=== PATIENT | female | born 1970 | race African-American/Black ===

== ENCOUNTER 2022-10-22 20:57 | Inpatient (IN) | payer OTHER ==
[~2022-10-22] VITALS: Ht 157.5 cm; Wt 105.7 kg
[2022-10-22] MEDS ORDERED: KETOROLAC 30MG/ML VIAL IV STA (21:23)
[2022-10-22 21:43] LABS: BASOPHILS % 0.3 % (0.0-2.0); EOSINOPHILS % 0.1 % (0.0-5.0); HEMATOCRIT. 37.1 % (36.0-48.0); HEMOGLOBIN. 12.7 g/dL (12.0-16.0); LYMPHOCYTES % 8.2 % (20.0-50.0); MEAN CORPUSCULAR HEMOGLOBIN 29.6 pg (28.0-32.0); MEAN CORPUSCULAR VOLUME 86.4 fL (81.0-99.0); MEAN PLATELET VOLUME 7.8 fl (7.4-10.4); MONOCYTES % 2.9 % (2.0-8.0); NEUTROPHILS % 88.5 % (40.0-76.0); PLATELET 302 x1000/uL (130-400); RED BLOOD CELL COUNT 4.29 mill/uL (4.2-5.4); RED CELL DISTRIBUTION WIDTH 13.3 % (11.6-14.6)
[2022-10-22] MEDS ORDERED: VANCOMYCIN 1G PREMIX 200 ML IV ONE (21:45)
[2022-10-22] MEDS ORDERED: PIPERACILLIN/TAZ 3.375G PREMIX 50 ML IV ONE (21:45)
[2022-10-22] MEDS ORDERED: SODIUM CHLORIDE 0.9% 1000ML BAG (SEPSIS BOLUS) IV ONE (21:45)
[2022-10-22 21:48] LABS: CHLORIDE 100 mEq/L (98-107)
[2022-10-22] MEDS ORDERED: POTASSIUM CHLORIDE 20MEQ TABLET SR PO ONE (23:00)
[2022-10-22 23:07] LABS: HCG SCREEN NEGATIVE
[2022-10-22] MEDS ORDERED: MAGNESIUM/ALUMINUM HYDROXIDE/SIMETHICONE 30ML UDC PO PRN (23:15)
[2022-10-22] MEDS ORDERED: DIPHENHYDRAMINE 50MG/ML VIAL IV PRN (23:15)
[2022-10-22] MEDS ORDERED: ACETAMINOPHEN 325MG TABLET PO PRN (23:15)
[2022-10-22] MEDS ORDERED: POTASSIUM CHLORIDE INJ 40 MEQ in DEXT 5% WATER 250 ML IV ONE (23:15)
[2022-10-22] MEDS ORDERED: ONDANSETRON HCL 4MG/2ML INJ IV PRN (23:15)
[2022-10-22] MEDS ORDERED: AZITHROMYCIN 500 MG in DEXT 5% WATER 250 ML IV SCH (23:30)
[2022-10-22 23:36] LABS: BG BASE EXCESS -3.9 mmol/L (-2.0-2.0); BG CARBOXYHEMOGLOBIN 0.5 % (0.5-1.5); BG DEOXYHEMOGLOBIN 5.2 % (0.0-5.0); BG FRACTION INSPIRED OXYGEN 70; BG HCO3 ACT 20.8 mmol/L (22.0-26.0); BG METHEMOGLOBIN 0.2 % (0.0-1.5); BG OXYGEN SATURATION 94.8 % (92.0-98.5); BG OXYHEMOGLOBIN 94.1 % (94.0-97.0); BG PCO2 36.7 mmHg (35.0-45.0); BG PH 7.372 (7.350-7.450); BG PO2 80.4 mmHg (75.0-100.0); BG SAMPLE SITE LEFT RADIAL; BG TOTAL HEMOGLOBIN 12.8 g/dL (12.0-18.0); BG VENT MODE MASK - BIPAP
[2022-10-22 23:38] LABS: CLARITY URINE CLEAR (CLEAR); COLOR URINE YELLOW (YELLOW); KETONES URINE NEGATIVE (NEGATIVE); LEUKOCYTE ESTERASE URINE NEGATIVE (NEGATIVE); NITRITE URINE NEGATIVE (NEGATIVE); OCCULT BLOOD URINE NEGATIVE (NEGATIVE); PROTEIN URINE TRACE (NEGATIVE); SPECIFIC GRAVITY URINE 1.009 (1.005-1.030); UROBILINOGEN URINE 0.2 E.U./dL (0.2-1.0)
[2022-10-22] MEDS ORDERED: NALOXONE HCL 0.4MG/ML VIAL IV PRN (23:45)
[2022-10-22] MEDS ORDERED: CEFTRIAXONE 1GM PREMIX 50 ML IV SCH (23:45)
[2022-10-23 00:21] LABS: D-DIMER 2.31 mg/L FEU (<0.50); INR 1.3; PROTHROMBIN TIME 13.9 sec (9.6-11.0)
[2022-10-23] MEDS: SODIUM CHLORIDE 0.9% 1,000 ML IV SCH ×2 (00:36→09:55)
[2022-10-23] MEDS ORDERED: ENOXAPARIN 100MG/ML SYR SUBCUT ONE (01:30)
[2022-10-23] MEDS ORDERED: NOREPINEPHRINE 8 MG in DEXT 5% WATER 242 ML IV PRN (02:15)
[2022-10-23] MEDS: KCL 20MEQ/100ML X 2 FOR TOTAL KCL 40MEQ/200ML IV SCH ×2 (02:41)
[2022-10-23] MEDS: IPRATROPIUM/ALBUTEROL 0.5-3(2.5)MG/3ML NEB HHN SCH ×5 (02:59→20:25)
[2022-10-23] MEDS ORDERED: MAGNESIUM 4 G PREMIX 100 ML IV NR (04:00)
[2022-10-23 06:58] LABS: BG BASE EXCESS -4.6 mmol/L (-2.0-2.0); BG CARBOXYHEMOGLOBIN 0.7 % (0.5-1.5); BG DEOXYHEMOGLOBIN 3.3 % (0.0-5.0); BG HCO3 ACT 19.7 mmol/L (22.0-26.0); BG METHEMOGLOBIN 0.2 % (0.0-1.5); BG OXYGEN SATURATION 96.7 % (92.0-98.5); BG OXYHEMOGLOBIN 95.8 % (94.0-97.0); BG PCO2 34.2 mmHg (35.0-45.0); BG PH 7.378 (7.350-7.450); BG PO2 90.6 mmHg (75.0-100.0); BG SAMPLE SITE RIGHT RADIAL; BG TOTAL HEMOGLOBIN 13.8 g/dL (12.0-18.0); BG VENT MODE VAPOTHERM
[2022-10-23] MEDS: HYDROCODONE/ACETAMINOPHEN 10/325MG TABLET PO PRN ×2 (08:06→15:16)
[2022-10-23] MEDS ORDERED: ENOXAPARIN 30MG/0.3ML SYR SUBCUT SCH (09:00)
[2022-10-23 09:08] LABS: HEMATOCRIT. 39.1 % (36.0-48.0); HEMOGLOBIN. 12.8 g/dL (12.0-16.0); MEAN CORPUSCULAR HEMOGLOBIN 29.6 pg (28.0-32.0); MEAN CORPUSCULAR VOLUME 90.5 fL (81.0-99.0); MEAN PLATELET VOLUME 7.9 fl (7.4-10.4); PLATELET 313 x1000/uL (130-400); RED BLOOD CELL COUNT 4.32 mill/uL (4.2-5.4); RED CELL DISTRIBUTION WIDTH 13.7 % (11.6-14.6)
[2022-10-23 09:15] LABS: CHLORIDE 106 mEq/L (98-107)
[2022-10-23 09:22] LABS: PHOSPHORUS 3.2 mg/dL (2.5-4.9)
[2022-10-23] MEDS: POTASSIUM CHLORIDE 20MEQ TABLET SR PO SCH ×3 (09:55→15:30)
[2022-10-23] MEDS ORDERED: NOREPINEPHRINE 8MG/250ML PMX 250 ML IV PRN (10:00)
[2022-10-23 10:03] LABS: PLATELET ESTIMATE NORMAL
[2022-10-23] MEDS: METRONIDAZOLE 500MG TABLET PO SCH ×2 (10:11→16:10)
[2022-10-23] MEDS: ACETAMINOPHEN 325MG TABLET PO PRN (15:20)
[2022-10-23 22:00] VITALS: BP_SYST 154; BP_SYST 156; BP_DIAS 116; BP_DIAS 67
[2022-10-24] VITALS (12 sets, daily range): BP systolic 83–133; BP diastolic 53–83
[2022-10-24] MEDS: IPRATROPIUM/ALBUTEROL 0.5-3(2.5)MG/3ML NEB HHN SCH ×6 (00:39→21:33)
[2022-10-24] MEDS: AZITHROMYCIN 500 MG in DEXT 5% WATER 250 ML IV SCH ×2 (01:26→21:55)
[2022-10-24] MEDS: SODIUM CHLORIDE 0.9% 1,000 ML IV SCH ×3 (01:26→21:54)
[2022-10-24] MEDS: CEFTRIAXONE 1,000 MG in DEXTROSE 5% WATER 50 ML IV SCH ×2 (01:26→21:55)
[2022-10-24] MEDS: FAMOTIDINE 20MG TABLET PO SCH ×2 (01:27→21:55)
[2022-10-24] MEDS: METRONIDAZOLE 500MG TABLET PO SCH ×4 (01:36→21:55)
[2022-10-24] MEDS: ENOXAPARIN 30MG/0.3ML SYR SUBCUT SCH ×2 (01:37→09:43)
[2022-10-24] MEDS: HYDROCODONE/ACETAMINOPHEN 10/325MG TABLET PO PRN ×3 (06:20→19:00)
[2022-10-24 06:53] LABS: BASOPHILS % 0.2 % (0.0-2.0); EOSINOPHILS % 0.7 % (0.0-5.0); HEMOGLOBIN. 10.3 g/dL (12.0-16.0); MEAN CORPUSCULAR HEMOGLOBIN 29.8 pg (28.0-32.0); MEAN PLATELET VOLUME 8.2 fl (7.4-10.4); MONOCYTES % 3.4 % (2.0-8.0); NEUTROPHILS % 87.7 % (40.0-76.0); PLATELET 251 x1000/uL (130-400); RED BLOOD CELL COUNT 3.45 mill/uL (4.2-5.4); RED CELL DISTRIBUTION WIDTH 13.6 % (11.6-14.6)
[2022-10-24] MEDS: POTASSIUM CHLORIDE 20MEQ TABLET SR PO SCH ×4 (09:42→21:57)
[2022-10-24] MEDS: GUAIFENESIN 200MG/10ML SUGAR FREE UDC PO PRN (14:49)
[2022-10-24] MEDS: MORPHINE SULFATE 4 MG/ML CPJ (NOT FOR IM USE) IV PRN (19:00)
[2022-10-24] MEDS: ENOXAPARIN 120MG/0.8ML SYR SUBCUT SCH (21:55)
[2022-10-24] MEDS: GUAIFENESIN 600MG ER TABLET PO SCH (21:56)
[2022-10-25] VITALS (12 sets, daily range): BP systolic 101–170; BP diastolic 53–120
[2022-10-25] MEDS: IPRATROPIUM/ALBUTEROL 0.5-3(2.5)MG/3ML NEB HHN SCH ×7 (00:30→23:35)
[2022-10-25] MEDS: METRONIDAZOLE 500MG TABLET PO SCH ×3 (06:11→22:19)
[2022-10-25] MEDS: MORPHINE SULFATE 4 MG/ML CPJ (NOT FOR IM USE) IV PRN (06:12)
[2022-10-25 07:04] LABS: BASOPHILS % 0.5 % (0.0-2.0); EOSINOPHILS % 1.4 % (0.0-5.0); HEMATOCRIT. 31.9 % (36.0-48.0); HEMOGLOBIN. 10.7 g/dL (12.0-16.0); LYMPHOCYTES % 8.3 % (20.0-50.0); MEAN CORPUSCULAR HEMOGLOBIN 29.4 pg (28.0-32.0); MEAN CORPUSCULAR VOLUME 87.5 fL (81.0-99.0); MEAN PLATELET VOLUME 8.1 fl (7.4-10.4); MONOCYTES % 3.7 % (2.0-8.0); NEUTROPHILS % 86.1 % (40.0-76.0); PLATELET 251 x1000/uL (130-400); RED BLOOD CELL COUNT 3.65 mill/uL (4.2-5.4); RED CELL DISTRIBUTION WIDTH 13.6 % (11.6-14.6)
[2022-10-25 07:55] LABS: CHLORIDE 109 mEq/L (98-107)
[2022-10-25] MEDS: POTASSIUM CHLORIDE 20MEQ TABLET SR PO SCH ×4 (09:24→21:00)
[2022-10-25] MEDS: GUAIFENESIN 600MG ER TABLET PO SCH ×2 (09:24→21:00)
[2022-10-25] MEDS: ACETAMINOPHEN 325MG TABLET PO PRN (09:24)
[2022-10-25] MEDS: ENOXAPARIN 120MG/0.8ML SYR SUBCUT SCH ×2 (09:25→21:00)
[2022-10-25] MEDS: SODIUM CHLORIDE 0.9% 1,000 ML IV SCH (13:16)
[2022-10-25] MEDS: GUAIFENESIN 200MG/10ML SUGAR FREE UDC PO PRN ×2 (13:16→17:14)
[2022-10-25] MEDS: CEFTRIAXONE 1,000 MG in DEXTROSE 5% WATER 50 ML IV SCH (20:00)
[2022-10-25] MEDS: FAMOTIDINE 20MG TABLET PO SCH (21:00)
[2022-10-25] MEDS: AZITHROMYCIN 500 MG in DEXT 5% WATER 250 ML IV SCH (22:19)
[2022-10-26] VITALS (11 sets, daily range): BP systolic 116–169; BP diastolic 73–110
[2022-10-26] MEDS: IPRATROPIUM/ALBUTEROL 0.5-3(2.5)MG/3ML NEB HHN SCH ×5 (03:55→20:12)
[2022-10-26 05:09] LABS: QFT MITOGEN VALUE 4.42 IU/mL (.); QFT TB GOLD PLUS Negative (Negative); QFT TB1 AG VALUE 0.01 IU/mL (.)
[2022-10-26] MEDS: METRONIDAZOLE 500MG TABLET PO SCH ×3 (05:31→21:36)
[2022-10-26] MEDS: BENZONATATE 100MG CAPSULE PO PRN ×2 (05:31→14:30)
[2022-10-26] MEDS: MORPHINE SULFATE 4 MG/ML CPJ (NOT FOR IM USE) IV PRN ×3 (05:32→21:02)
[2022-10-26] MEDS: CLONIDINE 0.1MG TABLET PO PRN ×2 (07:09→14:19)
[2022-10-26 08:51] LABS: BG BASE EXCESS 3.7 mmol/L (-2.0-2.0); BG CARBOXYHEMOGLOBIN 0.3 % (0.5-1.5); BG DEOXYHEMOGLOBIN 2.2 % (0.0-5.0); BG FRACTION INSPIRED OXYGEN 40; BG HCO3 ACT 27.4 mmol/L (22.0-26.0); BG METHEMOGLOBIN 0.1 % (0.0-1.5); BG OXYGEN SATURATION 97.8 % (92.0-98.5); BG OXYHEMOGLOBIN 97.4 % (94.0-97.0); BG PCO2 38.1 mmHg (35.0-45.0); BG PH 7.475 (7.350-7.450); BG PO2 96.6 mmHg (75.0-100.0); BG SAMPLE SITE RIGHT BRACHIAL; BG TOTAL HEMOGLOBIN 11.4 g/dL (12.0-18.0); BG VENT MODE HIGH FLOW
[2022-10-26] MEDS ORDERED: AMLODIPINE 5MG TABLET PO SCH (09:00)
[2022-10-26] MEDS: POTASSIUM CHLORIDE 20MEQ TABLET SR PO SCH ×3 (09:00→16:34)
[2022-10-26] MEDS: GUAIFENESIN 200MG/10ML SUGAR FREE UDC PO PRN ×2 (09:09→14:19)
[2022-10-26] MEDS: ENOXAPARIN 120MG/0.8ML SYR SUBCUT SCH (09:09)
[2022-10-26] MEDS: GUAIFENESIN 600MG ER TABLET PO SCH ×2 (09:10→21:00)
[2022-10-26] MEDS: SODIUM CHLORIDE 0.9% 1,000 ML IV SCH (10:36)
[2022-10-26] MEDS ORDERED: IOHEXOL-350 100 ML BOTTLE ONE (13:19)
[2022-10-26] MEDS ORDERED: HYDRALAZINE 20MG/ML VIAL IV PRN ×2 (14:45→21:45)
[2022-10-26] MEDS ORDERED: CLONIDINE 0.2MG TABLET PO PRN (19:00)
[2022-10-26] MEDS: ENOXAPARIN 30MG/0.3ML SYR SUBCUT SCH (20:59)
[2022-10-26] MEDS: CEFTRIAXONE 1,000 MG in DEXTROSE 5% WATER 50 ML IV SCH (21:00)
[2022-10-26] MEDS: FAMOTIDINE 20MG TABLET PO SCH (21:00)
[2022-10-26] MEDS: AMLODIPINE 5MG TABLET PO SCH (21:00)
[2022-10-26] MEDS: AZITHROMYCIN 500 MG in DEXT 5% WATER 250 ML IV SCH (21:01)
[2022-10-26] MEDS ORDERED: BENZONATATE 200MG CAPSULE PO PRN (22:00)
[2022-10-27] VITALS (7 sets, daily range): BP systolic 107–145; BP diastolic 72–100
[2022-10-27] MEDS: IPRATROPIUM/ALBUTEROL 0.5-3(2.5)MG/3ML NEB HHN SCH ×6 (00:15→21:57)
[2022-10-27] MEDS: MORPHINE SULFATE 4 MG/ML CPJ (NOT FOR IM USE) IV PRN ×2 (03:57→15:13)
[2022-10-27] MEDS: METRONIDAZOLE 500MG TABLET PO SCH ×3 (05:12→21:29)
[2022-10-27 06:37] LABS: CHLORIDE 99 mEq/L (98-107)
[2022-10-27] MEDS: SODIUM CHLORIDE 0.9% 1,000 ML IV SCH (06:49)
[2022-10-27] MEDS: POTASSIUM CHLORIDE 20MEQ TABLET SR PO SCH ×2 (08:19→17:08)
[2022-10-27] MEDS: GUAIFENESIN 600MG ER TABLET PO SCH ×2 (08:19→21:29)
[2022-10-27] MEDS: AMLODIPINE 5MG TABLET PO SCH ×2 (08:20→21:30)
[2022-10-27] MEDS: ENOXAPARIN 30MG/0.3ML SYR SUBCUT SCH ×2 (08:20→21:29)
[2022-10-27] MEDS: LOSARTAN POTASSIUM 50 MG TABLET PO SCH (10:41)
[2022-10-27] MEDS ORDERED: HYDRALAZINE 10 MG in SODIUM CHLORIDE 0.9% 49.5 ML IV PRN (13:15)
[2022-10-27] MEDS ORDERED: HYDRALAZINE 5 MG in SODIUM CHLORIDE 0.9% 49.5 ML IV PRN (13:17)
[2022-10-27] MEDS: CEFTRIAXONE 1,000 MG in DEXTROSE 5% WATER 50 ML IV SCH (21:29)
[2022-10-27] MEDS: FAMOTIDINE 20MG TABLET PO SCH (21:30)
[2022-10-28] VITALS: BP 112/76
[2022-10-28] MEDS: IPRATROPIUM/ALBUTEROL 0.5-3(2.5)MG/3ML NEB HHN SCH (00:17)
[2022-10-28] MEDS: SODIUM CHLORIDE 0.9% 1,000 ML IV SCH ×2 (02:49→22:17)
[2022-10-28] MEDS: MORPHINE SULFATE 4 MG/ML CPJ (NOT FOR IM USE) IV PRN ×3 (03:08→23:51)
[2022-10-28] MEDS: METRONIDAZOLE 500MG TABLET PO SCH ×3 (06:36→21:30)
[2022-10-28] MEDS: GUAIFENESIN 200MG/10ML SUGAR FREE UDC PO PRN (06:37)
[2022-10-28 07:22] LABS: HEMATOCRIT. 35.3 % (36.0-48.0); MEAN CORPUSCULAR HEMOGLOBIN 29.7 pg (28.0-32.0); MEAN CORPUSCULAR VOLUME 87.2 fL (81.0-99.0); MEAN PLATELET VOLUME 7.9 fl (7.4-10.4); PLATELET 324 x1000/uL (130-400); RED BLOOD CELL COUNT 4.05 mill/uL (4.2-5.4); RED CELL DISTRIBUTION WIDTH 13.6 % (11.6-14.6)
[2022-10-28 08:00] VITALS: BP 122/79
[2022-10-28] MEDS: POTASSIUM CHLORIDE 20MEQ TABLET SR PO SCH ×2 (09:00→16:49)
[2022-10-28] MEDS: GUAIFENESIN 600MG ER TABLET PO SCH ×2 (09:00→20:27)
[2022-10-28] MEDS: LOSARTAN POTASSIUM 50 MG TABLET PO SCH (09:00)
[2022-10-28] MEDS: AMLODIPINE 5MG TABLET PO SCH ×2 (09:00→20:27)
[2022-10-28] MEDS: ENOXAPARIN 30MG/0.3ML SYR SUBCUT SCH ×2 (09:00→20:28)
[2022-10-28 12:00] VITALS: BP 123/82
[2022-10-28 14:09] LABS: BG BASE EXCESS 5.5 mmol/L (-2.0-2.0); BG CARBOXYHEMOGLOBIN 0.8 % (0.5-1.5); BG DEOXYHEMOGLOBIN 6.5 % (0.0-5.0); BG HCO3 ACT 28.2 mmol/L (22.0-26.0); BG METHEMOGLOBIN 0.1 % (0.0-1.5); BG OXYGEN SATURATION 93.4 % (92.0-98.5); BG OXYHEMOGLOBIN 92.6 % (94.0-97.0); BG PCO2 35.1 mmHg (35.0-45.0); BG PH 7.523 (7.350-7.450); BG PO2 61.3 mmHg (75.0-100.0); BG SAMPLE SITE RIGHT RADIAL; BG TOTAL HEMOGLOBIN 13.6 g/dL (12.0-18.0); BG VENT MODE ROOM AIR
[2022-10-28 16:00] VITALS: BP 135/87
[2022-10-28 20:00] VITALS: BP 122/77
[2022-10-28] MEDS: FAMOTIDINE 20MG TABLET PO SCH (20:27)
[2022-10-29] VITALS: BP 119/71
[2022-10-29 04:00] VITALS: BP 108/77
[2022-10-29] MEDS: MORPHINE SULFATE 4 MG/ML CPJ (NOT FOR IM USE) IV PRN ×3 (05:09→18:51)
[2022-10-29 08:00] VITALS: BP 118/84
[2022-10-29] MEDS: LOSARTAN POTASSIUM 50 MG TABLET PO SCH (08:51)
[2022-10-29] MEDS: AMLODIPINE 5MG TABLET PO SCH ×2 (08:51→21:23)
[2022-10-29] MEDS: GUAIFENESIN 600MG ER TABLET PO SCH ×2 (08:51→21:22)
[2022-10-29] MEDS: POTASSIUM CHLORIDE 20MEQ TABLET SR PO SCH ×2 (08:51→18:51)
[2022-10-29] MEDS: ENOXAPARIN 30MG/0.3ML SYR SUBCUT SCH ×2 (09:04→21:24)
[2022-10-29 09:43] LABS: ATYPICAL LYMPHOCYTES 1; PLATELET ESTIMATE NORMAL
[2022-10-29 12:00] VITALS: BP 119/79
[2022-10-29 16:00] VITALS: BP 122/84
[2022-10-29] MEDS ORDERED: HYDRALAZINE 5 MG in SODIUM CHLORIDE 0.9% 49.75 ML IV PRN (16:43)
[2022-10-29 18:51] VITALS: BP 122/84
[2022-10-29] MEDS ORDERED: LEVOFLOXACIN 500MG TABLET PO SCH (21:15)
[2022-10-29] MEDS: FAMOTIDINE 20MG TABLET PO SCH (21:23)
[2022-10-29] MEDS: ACETAMINOPHEN 325MG TABLET PO PRN (21:47)
== END 2022-10-29 23:55 | disposition home or self-care (01) | DRG 871 ==
LOC: ER 20:57 → MICUSO 23:22 → EDBEDREQ 23:24 → EDBEDREQSVC 10-23 16:47 → 5EST 10-23 22:37 → 7WST 10-26 18:07 → 6EST 10-27 13:08
PROVIDERS: ADMIT Internal Medicine; ATTEND Internal Medicine
PROC: 5A09357 Assistance with Respiratory Ventilation, Less than 24 Consecutive Hours, Continuous Positive Airway Pressure (ICD-10-PCS; principal; 2022-10-23)
PROC: 02HV33Z Insertion of Infusion Device into Superior Vena Cava, Percutaneous Approach (ICD-10-PCS; 2022-10-23)
PROC: 5A0945A Assistance with Respiratory Ventilation, 24-96 Consecutive Hours, High Flow/Velocity Cannula (ICD-10-PCS; 2022-10-23)
DX: A41.9 Sepsis, unspecified organism (principal); J15.9 Unspecified bacterial pneumonia; R65.21 Severe sepsis with septic shock; J96.01 Acute respiratory failure with hypoxia; E44.1 Mild protein-calorie malnutrition; N17.9 Acute kidney failure, unspecified; Z68.41 Body mass index [BMI] 40.0-44.9, adult; E66.9 Obesity, unspecified; E83.42 Hypomagnesemia; Z20.822 Contact with and (suspected) exposure to COVID-19; E87.6 Hypokalemia; I10 Essential (primary) hypertension; I27.20 Pulmonary hypertension, unspecified; I36.1 Nonrheumatic tricuspid (valve) insufficiency; Z98.891 History of uterine scar from previous surgery
CPT/HCPCS: 36415; 36573; 36600; 71045; 71275; 78580; 80048; 80053; 81003; 82375; 82805; 83605; 83735; 84100; 84145; 84484; 84703; 85025; 85379; 85651; 86480; 87070; 87116; 87426; 87449; 93005; 93306; 93970; 94640; 94660; 97162; 99291; C1725; J0456; J0696; J1200; J1650; J1885; J2270; J2405; J2543; J3370; J3475; J3480; J3490; J7030; J7060; Q9967; A4315